=== PATIENT | female | born 1980 | race Caucasian/White ===

== ENCOUNTER 2022-06-05 15:08 | Emergency (ER) | payer SELFPAY ==
--- OUTSIDE RECORDS SUMMARY | 2022-06-05 15:10 | XMS REPORT | Continuity of Care Document ---
:1980 Author Organization [facility] t Address Pending sale to [facility] [address] [place] [address] Care Team Providers Name Role Phone FOG_A_Provider Attending Clinician Unavailable JAHAIRA HASSAN Attending Clinician Unavailable FOG_A_Provider Admitting Clinician Unavailable Payers Payer Name Policy Type Policy Number Effective Date Expiration Date Jenn garcia [facility] [id number] 2021 00:00:00 Problems Condition Condition Condition Status Onset Resolution Last Treating Co mments Source Name Details Category Date Date Treatment Clinician Date Traumatic Traumatic Problem Active 2021-06 Aza elton arthropath Arthropath 1-17 Or thope y-wrist y-wrist 00:00: dic 00 Sports Medicin e Closed Closed Problem Active 2021-06 Holly fracture Fracture 1-17 Orthop e of distal of Distal 00:00: dic end of End of 00 Sports right Right Medicin radius Radius e Osteoarthr Osteoarthr Problem Active 2021-06 A zalea itis of itis of 1-17 Orthope wrist Wrist 00:00: dic 00 Sports Medicin e Allergies, Adverse Reactions, Alerts This patient has no known allergies or adverse reactions. Medications Ordered Filled Start Stop Current Ordering Indication Dosage Frequency Signature Comments Components Source Medication Medication Date Date Medication? Clinician (SIG) Name Name acetaminoph acetaminoph No acetaminop Holly en 300 en 300 hen 300 Orthope mg-codeine mg-codeine mg-codeine dic 30 mg 30 mg 30 mg Sports tablet TAKE tablet TAKE tablet Medicin 1 TABLET BY 1 TABLET BY TAKE 1 e MOUTH THREE MOUTH THREE TABLET BY TIMES DAILY TIMES DAILY MOUTH DIRECTED DIRECTED THREE TIMES DAILY DIRECTED atorvastati atorvastati No atorvastat Holly n 40 mg n 40 mg in 40 mg Ortho pe tablet TAKE tablet TAKE tablet dic 1 TABLET BY 1 TABLET BY TAKE 1 Sports MOUTH ONCE MOUTH ONCE TABLET BY Medicin DAILY DAILY MOUTH ONCE e DAILY citalopram citalopram No citalopram Holly 40 mg 40 mg 40 mg Orthope tablet TAKE tablet TAKE tablet dic 1 & 07/01 & 07/01 TAKE 1 & Sport s (ONE & (ONE & 2 (ONE & Medic in ONE-HALF) ONE-HALF) ONE-HALF) e TABLETS BY TABLETS BY TABLETS BY MOUTH ONCE MOUTH ONCE MOUTH ONCE DAILY DAILY DAILY clindamycin clindamycin No clindamyci Holly HCl 300 mg HCl 300 mg n HCl 300 Orthope capsule capsule mg capsule dic TAKE 1 TAKE 1 TAKE 1 Sports CAPSULE BY CAPSULE BY CAPSULE BY Medicin MOUTH TWICE MOUTH TWICE MOUTH e DAILY DAILY TWICE DAILY clonazepam clonazepam No clonazepam Holly 0.5 mg 0.5 mg 0.5 mg Orthope tablet TAKE tablet TAKE tablet dic 1 TABLET BY 1 TABLET BY TAKE 1 Sports MOUTH ONCE MOUTH ONCE TABLET BY Medicin DAILY DAILY MOUTH ONCE e NEEDED FOR NEEDED FOR DAILY ANXIETY ANXIETY NEEDED FOR ANXIETY cyclobenzap cyclobenzap No cyclobenza Holly rine 10 mg rine 10 mg florentin 10 Orthope tablet tablet mg tablet dic Sports Medicin e dextroamphe dextroamphe No dextroamph Holly tamine-amph tamine-amph etamine-am Orthope etamine 30 etamine 30 phetamine dic mg tablet mg tablet 30 mg Spor ts TAKE ONE TAKE ONE tablet Medic in (1) (1) TAKE ONE e TABLET(S) TABLET(S) (1) BY MOUTH BY MOUTH TABLET(S) TWICE A TWICE A BY MOUTH DAY. DAY. TWICE A DAY. gabapentin gabapentin No gabapentin Holly 300 mg 300 mg 300 mg Orthope capsule capsule capsule dic TAKE 1 TAKE 1 TAKE 1 Sports CAPSULE BY CAPSULE BY CAPSULE BY Medicin MOUTH THREE MOUTH THREE MOUTH e TIMES DAILY TIMES DAILY THREE TIMES DAILY hydrocodone hydrocodone No hydrocodon Holly 10 10 e 10 Orthope mg-acetamin mg-acetamin mg-acetami dic ophen 325 ophen 325 nophen 325 Sports mg tablet mg tablet mg tablet Medicin e hydrocodone hydrocodone No hydrocodon Holly 5 5 e 5 Orthope mg-acetamin mg-acetamin mg-acetami dic ophen 325 ophen 325 nophen 325 Sports mg tablet mg tablet mg tablet Medicin TAKE 1 TO 2 TAKE 1 TO 2 TAKE 1 TO e TABLETS BY TABLETS BY 2 TABLETS MOUTH EVERY MOUTH EVERY BY MOUTH 6 HOURS 6 HOURS EVERY 6 NEEDED FOR NEEDED FOR HOURS PAIN PAIN NEEDED FOR PAIN ibuprofen ibuprofen No ibuprofen Holly 600 mg 600 mg 600 mg Orthope tablet TAKE tablet TAKE tablet dic 1 TABLET BY 1 TABLET BY TAKE 1 Sports MOUTH EVERY MOUTH EVERY TABLET BY Medicin 6 HOURS 6 HOURS MOUTH e NEEDED NEEDED EVERY 6 HOURS NEEDED ibuprofen ibuprofen No ibuprofen Holly 800 mg 800 mg 800 mg Orthope tablet tablet tablet dic Sports Medicin e Narcan 4 Narcan 4 No Narcan 4 Aza elton mg/actuatio mg/actuatio mg/actuati Orthope n nasal n nasal on nasal dic spray spray spray Sports Medicin e ondansetron ondansetron No ondansetro Holly 4 mg 4 mg n 4 mg Orthope disintegrat disintegrat disintegra dic ing tablet ing tablet ting Spo rts DISSOLVE 1 DISSOLVE 1 tablet M edicin TABLET IN TABLET IN DISSOLVE 1 e MOUTH EVERY MOUTH EVERY TABLET IN 6 HOURS 6 HOURS MOUTH NEEDED FOR NEEDED FOR EVERY 6 NAUSEA AND NAUSEA AND HOURS VOMITING VOMITING NEEDED FOR NAUSEA AND VOMITING oxycodone oxycodone No oxycodone Holly 10 mg 10 mg 10 mg Orthope tablet TAKE tablet TAKE tablet dic 1 TABLET BY 1 TABLET BY TAKE 1 Sports MOUTH EVERY MOUTH EVERY TABLET BY Medicin 4 HOURS 4 HOURS MOUTH e NEEDED FOR NEEDED FOR EVERY 4 PAIN PAIN HOURS NEEDED FOR PAIN oxycodone-a oxycodone-a No oxycodone- Holly cetaminophe cetaminophe acetaminop Orthope n 5 mg-325 n 5 mg-325 hen 5 di c mg tablet mg tablet mg-325 mg Sports tablet Medicin e prednisone prednisone No prednisone Holly 10 mg 10 mg 10 mg Orthope tablet TAKE tablet TAKE tablet dic 3 TABLETS 3 TABLETS TAKE 3 Spo rts BY MOUTH BY MOUTH TABLETS BY Enoc hoodicin ONCE DAILY ONCE DAILY MOUTH ONCE e FOR 3 DAYS FOR 3 DAYS DAILY FOR AND 2 ONCE AND 2 ONCE 3 DAYS AND DAILY FOR 3 DAILY FOR 3 2 ONCE DAYS AND 1 DAYS AND 1 DAILY FOR ONCE DAILY ONCE DAILY 3 DAYS AND FOR 3 DAYS FOR 3 DAYS 1 ONCE DAILY FOR 3 DAYS tramadol 50 tramadol 50 No tramadol Holly mg tablet mg tablet 50 mg Orth ope TAKE 1 TAKE 1 tablet dic TABLET BY TABLET BY TAKE 1 Spo rts MOUTH EVERY MOUTH EVERY TABLET BY Medicin 8 HOURS 8 HOURS MOUTH e NEEDED FOR NEEDED FOR EVERY 8 PAIN PAIN HOURS NEEDED FOR PAIN Procedures Procedure Date / Time Performed Performing Clinician Sourc e XR, wrist, 3 or more 2022-05-16 00:00:00 Holly Orthopedic view Sports Medicine Plan of Care Planned Activity Planned Date Details Comments Source Diagnostic Test 2022-05-16 ESR (erythrocyte Holly O rthopedic Pending 00:00:00 sedimentation rate), Sports Medicine blood [code = ESR (erythrocyte sedimentation rate), blood] Diagnostic Test 2022-05-16 C-reactive protein, [facility] Pending 00:00:00 quantitative [code = Sports Medicine C-reactive protein, quantitative] Diagnostic Test 2022-05-16 CBC w/ diff [code = [facility] Pending 00:00:00 CBC w/ diff] Sports Medicine Future Appointment 2022-06-11 Yonatan Garsia, [address] [facility] 08:15:00 [place], [place] Sports Med [place]ict [id number] Encounters Start End Encounter Admission Attending Care Care Encounter Source Date/Time Date/Time Type Type Clinicians Facility Department ID 2022-03-19 Outpatient [facility] [id number] [place] 17:24:36 [id number] Health 2022-03-18 Outpatient [facility] [id number] [place] 09:14:03 [id number] Health 2022-05-16 2022-05-16 Outpatient [facility]Provi [facility] AOSM 644 Holly 00:00:00 00:00:00 maria [id number] Orthop e dic Sports Medicin e 2022-05-16 2022-05-16 Yonatan LANDEROSSM [place] - Ortho [id number] Holly 00:00:00 00:00:00 MD Ady: Angelica Tamayo rthope [address] [facility], [place] [id number] , Ph. [phone] 2022-05-15 2022-05-15 Outpatient FOG_A_Provi AOSM AOSM 644 Holly 00:00:00 00:00:00 maria [id number] Orthop e dic Sports Medicin e 2022-05-10 2022-05-10 Outpatient FOG_A_Provi AOSM AOSM [id number] Holly 00:00:00 00:00:00 maria [id number] Orthop e dic Sports Medicin e 2022-04-03 2022-04-03 Outpatient [place] [facility] [id number] [place] 10:30:00 10:30:00 , JAHAIRA Proctor Results This patient has no known results.
--- NOTE | 2022-06-05 17:19 | RAD REPORT ---
EXAM DESCRIPTION: RAD - Wrist Right 3 View - 06/05/2022 4:58 pm CLINICAL HISTORY: known fracture, new fall and increased pain COMPARISON: No comparisons FINDINGS: Advanced degenerative changes are present along the radiocarpal joint space. The radial ar ticular surface has a flattened and broader overall articular surface is well is a ventral angulation . Defects are seen in the distal radius from prior fracture fixation hardware. The distal radius is s hortened relative to the ulna creating a 7 mm positive ulnar variance. The radial styloid is a free fragment. It is difficult to determine if this is a chronic free fragmen t or represents a new injury. No gross acute fracture deformity seen in the main body of the radius. No ulnar fracture is seen. Carpal bones articulate with the radius near the ventral margin. There is no dislocation or periostea l reaction noted. No foreign body or other soft tissue abnormality. IMPRESSION: Patient has advanced degenerative change along the radial articular surface lumbar posts urgical changes to the distal radius. Radial styloid is a free fracture fragment and this could be acute or chronic. A gross fracture defor mity of the wrist is not otherwise seen.
--- NOTE | 2022-06-05 17:24 | EDPHYS ---
Physician Documentation [facility] Name: Dunia Lopez Age: 41 yrs Sex: Female : 1980 Arrival Date: 06/05/2022 Time: 15:10 Bed IW1 Private MD: ED Physician Stewart Archibald HPI: 06/05 16:21 This 41 yrs old Female presents to ER via Ambulatory with complaints of fall, wrist rn injury. 16:21 The patient or guardian reports decreased range of motion, deformity, injury, pain. The rn complaints affect the right wrist diffusely. Onset: The symptoms/episode began/occurred 2 day(s) ago. Modifying factors: The symptoms are alleviated by nothing, the symptoms are aggravated by movement. Associated signs and symptoms: Pertinent negatives: cyanosis distally, decreased sensation distally, fever, numbness distally, tingling distally. The patient has experienced a previous episode. The patient has been recently seen by a physician:. Pt reports initially broke right wrist in jun/jul this year, had surgery, with complications, now told by most recent ortho surgeon that can only do fusion. Has most current plain films that show intraarticular fracture with poor alignment. Patient reports even before new fall 2 days ago had little no no ROM of right wrist. No other injury. Fell on outstretched arm. . Historical: - Allergies: 16:18 PENICILLINS; vg1 - Home Meds: 16:18 atorvastatin oral [Active]; Adderall XR Oral [Active]; vg1 - PMHx: 16:18 Hypercholesterolemia; vg1 - Immunization history:: Client reports receiving the 2nd dose of the Covid vaccine. - Social history:: Smoking status: Patient reports the use of cigarette tobacco products, denies chronic smoking, but will smoke occasionally. - Family history:: not pertinent. - Hospitalizations: : No recent hospitalization is reported. ROS: 16:21 Constitutional: Negative for fever, chills, and weight loss, MS/Extremity: + right rn wrist pain and injury Skin: + bruising to right wrist Neuro: Negative for headache, weakness, numbness, tingling, and seizure. Exam: 16:21 Constitutional: This is a well developed, well nourished patient who is awake, alert, rn and in no acute distress. Ambulatory to room without difficulty. Cardiovascular: Tachycardic, regular. No pulse deficits. Skin: Warm, dry, no cyanosis MS/ Extremity: Pulses equal, no cyanosis. Neurovascular intact. Little to no ROM right wrist. NO open wounds. + ecchymosis to distal radius and disstal ulna. Vital Signs: 16:13 BP 144 / 97; Pulse 110; Resp 16; Temp 98.9; Pulse Ox 100% ; Weight 83.91 kg; Height 5 vg1 ft. 4 in. (162.56 cm); Pain 7/10; 16:13 Body Mass Index 31.75 (83.91 kg, 162.56 cm) vg1 MDM: 15:49 Patient medically screened. rn 17:22 Differential diagnosis: closed fracture, contusion. Data reviewed: vital signs, nurses rn notes, radiologic studies, plain films, and as a result, I will discharge patient. Counseling: I had a detailed discussion with the patient and/or guardian regarding: the historical points, exam findings, and any diagnostic results supporting the discharge/admit diagnosis, radiology results, the need for outpatient follow up, to return to the emergency department if symptoms worsen or persist or if there are any questions or concerns that arise at home. Response to treatment: the patient's symptoms have mildly improved after treatment, and as a result, I will. 17:23 Special discussion: I discussed with the patient/guardian in detail that at this point rn there is no indication for admission to the hospital. It is understood, however, that if the symptoms persist or worsen the patient needs to return immediately for re-evaluation. Based on the history and exam findings, there is no indication for further emergent testing or inpatient evaluation. I discussed with the patient/guardian the need to see the orthopedic surgeon for further evaluation of the symptoms. ED course: Unclear if new fracture component, either way is scheduled for surgery/fusion with ortho, will dc home with ortho f/u as already planned. . 06/05 16:17 Order name: XRAY Wrist RIGHT 3 view; Complete Time: 17:21 rn 06/05 17:25 Order name: Splint - Volar Wrist Splint; Complete Time: 17:40 rn 06/05 17:25 Order name: Sling; Complete Time: 17:40 rn Administered Medications: 17:40 Drug: Warners (HYDROcodone-acetaminophen) 10 mg-325 mg 1 tabs Route: PO; vg1 17:40 Follow up: Response: Medication administered at discharge. vg1 Disposition Summary: 06/05/22 17:24 Discharge Ordered Location: Home rn Problem: new rn Symptoms: have improved rn Condition: Stable rn Diagnosis - Radial styloid fracture rn Followup: rn - With: Private Physician - When: As needed - Reason: Recheck today's complaints, Re-evaluation by your physician Discharge Instructions: - Discharge Summary Sheet rn - Wrist Fracture Treated With Immobilization rn Forms: - Medication Reconciliation Form rn - Thank You Letter rn - Antibiotic pattern vault clerk - Prescription Opioid Use rn Prescriptions: - Tylenol-Codeine #3 300 mg-30 mg Oral - take 1 tablet by ORAL route every 8 hours As needed; 12 tablet; Refills: 0, rn Product Selection Permitted Signatures: Dispatcher [employer] Stewart Vargas MD MD rn Garcia, Victoria, RN RN vg1
--- NOTE | 2022-06-05 17:24 | ER ---
Nurse's Notes [facility] Name: Dunia Lopez Age: 41 yrs Sex: Female : 1980 Arrival Date: 06/05/2022 Time: 15:10 Bed IW1 Private MD: Diagnosis: Radial styloid fracture Presentation: 06/05 16:13 Chief complaint: Patient states: tripped and landed on Right hand x 2 days ago Right vg1 hand appears to be swollen. Coronavirus screen: Vaccine status: Patient reports receiving the 2nd dose of the covid vaccine. Client denies travel out of the [place] in the last 14 days. Ebola Screen: Patient negative for fever greater than or equal to 101.5 degrees Fahrenheit, and additional compatible Ebola Virus Disease symptoms. Initial Sepsis Screen: Does the patient meet any 2 criteria?. Initial Sepsis Screen: Does the patient meet any 2 criteria? No. Patient's initial sepsis screen is negative. Does the patient have a suspected source of infection? No. Patient's initial sepsis screen is negative. Risk Assessment: Do you want to hurt yourself or someone else? Patient reports no desire to harm self or others. Onset of symptoms was June 03, 2022. 16:13 Method Of Arrival: Ambulatory [facility] 16:13 Acuity: SURAJ 4 vg1 Triage Assessment: 16:18 General: Appears uncomfortable, Behavior is cooperative. Pain: Complains of pain in vg1 right arm Pain currently is 7 out of 10 on a pain scale. Musculoskeletal: Reports numbness in right hand. Historical: - Allergies: 16:18 PENICILLINS; vg1 - Home Meds: 16:18 atorvastatin oral [Active]; Adderall XR Oral [Active]; vg1 - PMHx: 16:18 Hypercholesterolemia; vg1 - Immunization history:: Client reports receiving the 2nd dose of the Covid vaccine. - Social history:: Smoking status: Patient reports the use of cigarette tobacco products, denies chronic smoking, but will smoke occasionally. - Family history:: not pertinent. - Hospitalizations: : No recent hospitalization is reported. Screenin:46 Abuse screen: Denies threats or abuse. Nutritional screening: No deficits noted. vg1 Tuberculosis screening: No symptoms or risk factors identified. Fall Risk Fall in past 12 months (25 points). No secondary diagnosis (0 pts). No IV (0 pts). Ambulatory Aid- None/Bed Rest/Nurse Assist (0 pts). Gait- Normal/Bed Rest/Wheelchair (0 pts) Mental Status- Oriented to own ability (0 pts). Total Mcallister Fall Scale indicates Low Risk Score (25-44 pts). Assessment: 17:46 Reassessment: Patient appears in no apparent distress at this time. No changes from vg1 previously documented assessment. Patient is alert, oriented x 3, equal unlabored respirations, skin warm/dry/pink. Vital Signs: 16:13 BP 144 / 97; Pulse 110; Resp 16; Temp 98.9; Pulse Ox 100% ; Weight 83.91 kg; Height 5 vg1 ft. 4 in. (162.56 cm); Pain 7/10; 16:13 Body Mass Index 31.75 (83.91 kg, 162.56 cm) vg1 ED Course: 15:10 Patient arrived in ED. mr 15:49 Stewart Archibald MD is Attending Physician. rn 16:18 Triage completed. vg1 16:18 Arm band placed on. vg1 17:00 XRAY Wrist RIGHT 3 view In Process Unspecified. EDMS 17:46 No provider procedures requiring assistance completed. Patient did not have IV access vg1 during this emergency room visit. Administered Medications: 17:40 Drug: Mullins (HYDROcodone-acetaminophen) 10 mg-325 mg 1 tabs Route: PO; vg1 17:40 Follow up: Response: Medication administered at discharge. vg1 Medication: 17:46 VIS not applicable for this client. vg1 Outcome: 17:24 Discharge ordered by . rn 17:46 Discharged to home ambulatory. vg1 17:46 Condition: good 17:46 Discharge instructions given to patient, Instructed on discharge instructions, follow up and referral plans. medication usage, Demonstrated understanding of instructions, follow-up care, medications, Prescriptions given X 1. 17:47 Patient left the ED. vg1 Signatures: Dispatcher [employer] [facility] Ethel Dhaliwal mr Stewart Archibald MD MD rn Garcia, Victoria, RN RN vg1
[2022-06-05] MEDS ORDERED: HYDROCODONE/APAP 10/325 TAB ONE (17:37)
[2022-06-05 22:18] VITALS: BP 144/97; TEMP 98.9; O2SAT 100
== END 2022-06-05 17:47 | disposition home or self-care (01) ==
LOC: ER 15:08
PROC: 2W3CX1Z Immobilization of Right Lower Arm using Splint (ICD-10-PCS; principal; 2022-06-05)
DX: S52.511A Displaced fracture of right radial styloid process, initial encounter for closed fracture (principal)
CPT/HCPCS: 99283

== ENCOUNTER 2024-04-05 19:15 | Emergency (ER) | payer OTHER, SELFPAY ==
--- OUTSIDE RECORDS SUMMARY | 2024-04-05 19:19 | XMS REPORT | Continuity of Care Document ---
Author Name Unknown Address [address] [facility]. [address] [place] [address] [facility] Address [address] 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 Role Phone Yonatan Garsia Attending Clinician Unavailable FOG_A_Provider Attending Clinician Unavailable JAHAIRA HASSAN Attending Clinician Unavail able Yonatan Garsia Admitting Clinician Unavailable FOG_A_Provider Admitting Clinician Unavailable Payers Payer Name Policy Type Policy Number Effective Date Expirati on Date Source [facility] - S\T\S HEALTHCARE STRATEGIES - CIGNA (PPO) [id number] 2022 00:00:00 [facility] [id number] 2021 00:00:00 2022 00:00:00 Problems Condition Name Condition Details Condition Category Status Onset Date Resolution Date Last Treatment Date Treating Clinician Comments Source Carpal tunnel syndrome of right wrist Carpal Tunnel Syndrome of Right Wrist Problem Active 09-02 00:00: 00 [facility] 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 Problem Active 09-02 00:00: 00 [facility] Traumatic arthropath y-wrist Traumatic Arthropath y-wrist Problem Active 2021-06 00:00: 00 [facility] Closed fracture of distal end of right radius Closed Fracture of Distal End of Right Radius Problem Active 2021-06 00:00: 00 [facility] Osteoarthr itis of wrist Osteoarthr itis of Wrist Problem Active 2021-06 00:00: 00 [facility] Allergies, Adverse Reactions, Alerts Allergy Name Allergy Type Status Severity Reaction(s) Onset Date Inactive Date Treating Clinician Comments Source BIAXIN DA Active U 2001-06 00:00: 00 [facility] CODEINE DA Active U 2001-06 00:00: 00 [facility] No Known Contrast Allergie s DA Active U 2001-06 00:00: 00 [facility] No Known Food Allergie s DA Active U 2001-06 00:00: 00 [facility] No Known Other Allergie s DA Active U 2001-06 00:00: 00 [facility] PENICILL IN DA Active U 2001-06 00:00: 00 [facility] SULFA DRUGS DA Active U 2001-06 00:00: 00 [facility] Medications Ordered Medication Name Filled Medication Name Start Date Stop Date Current Medication? Ordering Clinician Indication Dosage Frequency Signature (SIG) Comments Components Source ibuprofen 600 mg tablet TAKE 1 TABLET BY MOUTH EVERY 6 HOURS NEEDED ibuprofen 600 mg tablet TAKE 1 TABLET BY MOUTH EVERY 6 HOURS NEEDED No ibuprofen 600 mg tablet TAKE 1 TABLET BY MOUTH EVERY 6 HOURS NEEDED [facility] ibuprofen 800 mg tablet ibuprofen 800 mg tablet No ibuprofen 800 mg tablet [facility] Narcan 4 mg/actuatio n nasal spray Narcan 4 mg/actuatio n nasal spray No Narcan 4 mg/actuati on nasal spray [facility] ondansetron 4 mg disintegrat ing tablet DISSOLVE 1 TABLET IN MOUTH EVERY 6 HOURS NEEDED FOR NAUSEA AND VOMITING ondansetron 4 mg disintegrat ing tablet DISSOLVE 1 TABLET IN MOUTH EVERY 6 HOURS NEEDED FOR NAUSEA AND VOMITING No ondansetro n 4 mg disintegra ting tablet DISSOLVE 1 TABLET IN MOUTH EVERY 6 HOURS NEEDED FOR NAUSEA AND VOMITING [facility] oxycodone 10 mg tablet TAKE 1 TABLET BY MOUTH EVERY 4 HOURS NEEDED FOR PAIN oxycodone 10 mg tablet TAKE 1 TABLET BY MOUTH EVERY 4 HOURS NEEDED FOR PAIN No oxycodone 10 mg tablet TAKE 1 TABLET BY MOUTH EVERY 4 HOURS NEEDED FOR PAIN [facility] oxycodone-a cetaminophe n 5 mg-325 mg tablet oxycodone-a cetaminophe n 5 mg-325 mg tablet No oxycodone- acetaminop hen 5 mg-325 mg tablet [facility] prednisone 10 mg tablet TAKE 3 TABLETS BY MOUTH ONCE DAILY FOR 3 DAYS AND 2 ONCE DAILY FOR 3 DAYS AND 1 ONCE DAILY FOR 3 DAYS prednisone 10 mg tablet TAKE 3 TABLETS BY MOUTH ONCE DAILY FOR 3 DAYS AND 2 ONCE DAILY FOR 3 DAYS AND 1 ONCE DAILY FOR 3 DAYS No prednisone 10 mg tablet TAKE 3 TABLETS BY MOUTH ONCE DAILY FOR 3 DAYS AND 2 ONCE DAILY FOR 3 DAYS AND 1 ONCE DAILY FOR 3 DAYS [facility] tramadol 50 mg tablet TAKE 1 TABLET BY MOUTH EVERY 8 HOURS NEEDED FOR PAIN tramadol 50 mg tablet TAKE 1 TABLET BY MOUTH EVERY 8 HOURS NEEDED FOR PAIN No tramadol 50 mg tablet TAKE 1 TABLET BY MOUTH EVERY 8 HOURS NEEDED FOR PAIN [facility] acetaminoph en 300 mg-codeine 30 mg tablet TAKE 1 TABLET BY MOUTH THREE TIMES DAILY DIRECTED acetaminoph en 300 mg-codeine 30 mg tablet TAKE 1 TABLET BY MOUTH THREE TIMES DAILY DIRECTED No acetaminop hen 300 mg-codeine 30 mg tablet TAKE 1 TABLET BY MOUTH THREE TIMES DAILY DIRECTED [facility] atorvastati n 40 mg tablet TAKE 1 TABLET BY MOUTH ONCE DAILY atorvastati n 40 mg tablet TAKE 1 TABLET BY MOUTH ONCE DAILY No atorvastat in 40 mg tablet TAKE 1 TABLET BY MOUTH ONCE DAILY [facility] citalopram 40 mg tablet TAKE 1 & 1/2 (ONE & ONE-HALF) TABLETS BY MOUTH ONCE DAILY citalopram 40 mg tablet TAKE 1 & 1/2 (ONE & ONE-HALF) TABLETS BY MOUTH ONCE DAILY No citalopram 40 mg tablet TAKE 1 & 1/2 (ONE & ONE-HALF) TABLETS BY MOUTH ONCE DAILY [facility] clindamycin HCl 300 mg capsule TAKE 1 CAPSULE BY MOUTH TWICE DAILY clindamycin HCl 300 mg capsule TAKE 1 CAPSULE BY MOUTH TWICE DAILY No clindamyci n HCl 300 mg capsule TAKE 1 CAPSULE BY MOUTH TWICE DAILY [facility] clonazepam 0.5 mg tablet TAKE 1 TABLET BY MOUTH ONCE DAILY NEEDED FOR ANXIETY clonazepam 0.5 mg tablet TAKE 1 TABLET BY MOUTH ONCE DAILY NEEDED FOR ANXIETY No clonazepam 0.5 mg tablet TAKE 1 TABLET BY MOUTH ONCE DAILY NEEDED FOR ANXIETY [facility] cyclobenzap rine 10 mg tablet cyclobenzap rine 10 mg tablet No cyclobenza florentin 10 mg tablet [facility] dextroamphe tamine-amph etamine 30 mg tablet TAKE ONE (1) TABLET(S) BY MOUTH TWICE A DAY. dextroamphe tamine-amph etamine 30 mg tablet TAKE ONE (1) TABLET(S) BY MOUTH TWICE A DAY. No dextroamph etamine-am phetamine 30 mg tablet TAKE ONE (1) TABLET(S) BY MOUTH TWICE A DAY. [facility] gabapentin 300 mg capsule TAKE 1 CAPSULE BY MOUTH THREE TIMES DAILY gabapentin 300 mg capsule TAKE 1 CAPSULE BY MOUTH THREE TIMES DAILY No gabapentin 300 mg capsule TAKE 1 CAPSULE BY MOUTH THREE TIMES DAILY [facility] hydrocodone 10 mg-acetamin ophen 325 mg tablet hydrocodone 10 mg-acetamin ophen 325 mg tablet No hydrocodon e 10 mg-acetami nophen 325 mg tablet [facility] hydrocodone 5 mg-acetamin ophen 325 mg tablet TAKE 1 TO 2 TABLETS BY MOUTH EVERY 6 HOURS NEEDED FOR PAIN hydrocodone 5 mg-acetamin ophen 325 mg tablet TAKE 1 TO 2 TABLETS BY MOUTH EVERY 6 HOURS NEEDED FOR PAIN No hydrocodon e 5 mg-acetami nophen 325 mg tablet TAKE 1 TO 2 TABLETS BY MOUTH EVERY 6 HOURS NEEDED FOR PAIN [facility] ibuprofen 600 mg tablet TAKE 1 TABLET BY MOUTH EVERY 6 HOURS NEEDED ibuprofen 600 mg tablet TAKE 1 TABLET BY MOUTH EVERY 6 HOURS NEEDED No ibuprofen 600 mg tablet TAKE 1 TABLET BY MOUTH EVERY 6 HOURS NEEDED [facility] ibuprofen 800 mg tablet ibuprofen 800 mg tablet No ibuprofen 800 mg tablet [facility] Narcan 4 mg/actuatio n nasal spray Narcan 4 mg/actuatio n nasal spray No Narcan 4 mg/actuati on nasal spray [facility] ondansetron 4 mg disintegrat ing tablet DISSOLVE 1 TABLET IN MOUTH EVERY 6 HOURS NEEDED FOR NAUSEA AND VOMITING ondansetron 4 mg disintegrat ing tablet DISSOLVE 1 TABLET IN MOUTH EVERY 6 HOURS NEEDED FOR NAUSEA AND VOMITING No ondansetro n 4 mg disintegra ting tablet DISSOLVE 1 TABLET IN MOUTH EVERY 6 HOURS NEEDED FOR NAUSEA AND VOMITING [facility] oxycodone 10 mg tablet TAKE 1 TABLET BY MOUTH EVERY 4 HOURS NEEDED FOR PAIN oxycodone 10 mg tablet TAKE 1 TABLET BY MOUTH EVERY 4 HOURS NEEDED FOR PAIN No oxycodone 10 mg tablet TAKE 1 TABLET BY MOUTH EVERY 4 HOURS NEEDED FOR PAIN [facility] oxycodone-a cetaminophe n 5 mg-325 mg tablet oxycodone-a cetaminophe n 5 mg-325 mg tablet No oxycodone- acetaminop hen 5 mg-325 mg tablet [facility] prednisone 10 mg tablet TAKE 3 TABLETS BY MOUTH ONCE DAILY FOR 3 DAYS AND 2 ONCE DAILY FOR 3 DAYS AND 1 ONCE DAILY FOR 3 DAYS prednisone 10 mg tablet TAKE 3 TABLETS BY MOUTH ONCE DAILY FOR 3 DAYS AND 2 ONCE DAILY FOR 3 DAYS AND 1 ONCE DAILY FOR 3 DAYS No prednisone 10 mg tablet TAKE 3 TABLETS BY MOUTH ONCE DAILY FOR 3 DAYS AND 2 ONCE DAILY FOR 3 DAYS AND 1 ONCE DAILY FOR 3 DAYS [facility] tramadol 50 mg tablet TAKE 1 TABLET BY MOUTH EVERY 8 HOURS NEEDED FOR PAIN tramadol 50 mg tablet TAKE 1 TABLET BY MOUTH EVERY 8 HOURS NEEDED FOR PAIN No tramadol 50 mg tablet TAKE 1 TABLET BY MOUTH EVERY 8 HOURS NEEDED FOR PAIN [facility] acetaminoph en 300 mg-codeine 30 mg tablet TAKE 1 TABLET BY MOUTH THREE TIMES DAILY DIRECTED acetaminoph en 300 mg-codeine 30 mg tablet TAKE 1 TABLET BY MOUTH THREE TIMES DAILY DIRECTED No acetaminop hen 300 mg-codeine 30 mg tablet TAKE 1 TABLET BY MOUTH THREE TIMES DAILY DIRECTED [facility] Adderall 30 mg tablet TAKE ONE (1) TABLET(S) BY MOUTH TWICE A DAY. Adderall 30 mg tablet TAKE ONE (1) TABLET(S) BY MOUTH TWICE A DAY. No Adderall 30 mg tablet TAKE ONE (1) TABLET(S) BY MOUTH TWICE A DAY. [facility] atorvastati n 40 mg tablet TAKE 1 TABLET BY MOUTH ONCE DAILY atorvastati n 40 mg tablet TAKE 1 TABLET BY MOUTH ONCE DAILY No atorvastat in 40 mg tablet TAKE 1 TABLET BY MOUTH ONCE DAILY [facility] citalopram 40 mg tablet TAKE 1 & 1/2 (ONE & ONE-HALF) TABLETS BY MOUTH ONCE DAILY citalopram 40 mg tablet TAKE 1 & 1/2 (ONE & ONE-HALF) TABLETS BY MOUTH ONCE DAILY No citalopram 40 mg tablet TAKE 1 & 1/2 (ONE & ONE-HALF) TABLETS BY MOUTH ONCE DAILY [facility] clindamycin HCl 300 mg capsule TAKE 1 CAPSULE BY MOUTH TWICE DAILY clindamycin HCl 300 mg capsule TAKE 1 CAPSULE BY MOUTH TWICE DAILY No clindamyci n HCl 300 mg capsule TAKE 1 CAPSULE BY MOUTH TWICE DAILY [facility] clonazepam 0.5 mg tablet TAKE 1 TABLET BY MOUTH ONCE DAILY NEEDED FOR ANXIETY clonazepam 0.5 mg tablet TAKE 1 TABLET BY MOUTH ONCE DAILY NEEDED FOR ANXIETY No clonazepam 0.5 mg tablet TAKE 1 TABLET BY MOUTH ONCE DAILY NEEDED FOR ANXIETY [facility] cyclobenzap rine 10 mg tablet cyclobenzap rine 10 mg tablet No cyclobenza florentin 10 mg tablet [facility] gabapentin 300 mg capsule TAKE 1 CAPSULE BY MOUTH THREE TIMES DAILY gabapentin 300 mg capsule TAKE 1 CAPSULE BY MOUTH THREE TIMES DAILY No gabapentin 300 mg capsule TAKE 1 CAPSULE BY MOUTH THREE TIMES DAILY [facility] hydrocodone 10 mg-acetamin ophen 325 mg tablet hydrocodone 10 mg-acetamin ophen 325 mg tablet No hydrocodon e 10 mg-acetami nophen 325 mg tablet [facility] hydrocodone 5 mg-acetamin ophen 325 mg tablet TAKE 1 TO 2 TABLETS BY MOUTH EVERY 6 HOURS NEEDED FOR PAIN hydrocodone 5 mg-acetamin ophen 325 mg tablet TAKE 1 TO 2 TABLETS BY MOUTH EVERY 6 HOURS NEEDED FOR PAIN No hydrocodon e 5 mg-acetami nophen 325 mg tablet TAKE 1 TO 2 TABLETS BY MOUTH EVERY 6 HOURS NEEDED FOR PAIN [facility] Procedures Procedure Date / Time Performed Performing Clinicia n Source XR, wrist, 3 or more view 2022-09-02 00:00:00 [facility] XR, wrist, 3 or more view 2022-05-16 00:00:00 [facility] Plan of Care Planned Activity Planned Date Details Comments Source Diagnostic Test Pending 2022-05-16 00:00:00 ESR (erythrocyte sedimentation rate), blood [code = ESR (erythrocyte sedimentation rate), blood] [facility] Diagnostic Test Pending 2022-05-16 00:00:00 C-reactive protein, quantitative [code = C-reactive protein, quantitative] [facility] Diagnostic Test Pending 2022-05-16 00:00:00 CBC w/ diff [code = CBC w/ diff] [facility] Encounters Start Date/Time End Date/Time Encounter Type Admission Type Attending Clinicians Care Facility Care Department Encounter ID Source 2022-06-21 08:00:00 Inpatient Yonatan Hernandez [facility] [id number] 1 41 [facility] 2022-03-19 17:24:36 Outpatient [facility] [id number] [facility] 2022-03-18 09:14:03 Outpatient [facility] [id number] [facility] 2023-03-31 00:00:00 2023-03-31 00:00:00 Outpatient FOG_A_Provi maria AOSM AOSM [id number] [facility] 2023-03-25 00:00:00 2023-03-25 00:00:00 Outpatient FOG_A_Provi maria AOSM AOSM [id number] [facility] 2023-02-18 00:00:00 2023-02-18 00:00:00 Outpatient FOG_A_Provi maria AOSM AOSM [id number] [facility] 2023-01-30 00:00:00 2023-01-30 00:00:00 Outpatient FOG_A_Provi maria AOSM AOSM [id number] [facility] 2023-01-14 00:00:00 2023-01-14 00:00:00 Outpatient FOG_A_Provi maria AOSM AOSM [id number] [facility] 2023-01-05 00:00:00 2023-01-05 00:00:00 Outpatient FOG_A_Provi maria AOSM AOSM [id number] [facility] 2022-10-25 00:00:00 2022-10-25 00:00:00 Outpatient FOG_A_Provi maria AOSM AOSM [id number] [facility] 2022-09-20 00:00:00 2022-09-20 00:00:00 Outpatient FOG_A_Provi maria AOSM AOSM [id number] [facility] 2022-09-02 08:00:00 2022-09-02 23:00:00 Outpatient Yonatan Hernandez [facility] [id number] [address] [place] [address] [facility] 2022-09-02 00:00:00 2022-09-02 00:00:00 Outpatient FOG_A_Provi maria AOSM AOSM [id number] [facility] 2022-09-02 00:00:00 2022-09-02 00:00:00 Yonatan Garsia MD: [address] [place] [address] , Ph. [phone] [facility] [place] [facility] [place] [facility] [id number] [facility] 2022-08-29 00:00:00 2022-08-29 00:00:00 Outpatient FOG_A_Provi maria AOSM AOSM [id number] [facility] 2022-08-22 00:00:00 2022-08-22 00:00:00 Outpatient FOG_A_Provi maria AOSM AOSM [id number] [facility] 2022-08-16 00:00:00 2022-08-16 00:00:00 Outpatient FOG_A_Provi maria AOSM AOSM [id number] [facility] 2022-08-16 00:00:00 2022-08-16 00:00:00 Outpatient FOG_A_Provi maria AOSM AOSM [id number] [facility] 2022-07-25 00:00:00 2022-07-25 00:00:00 Outpatient FOG_A_Provi maria AOSM AOSM [id number] [facility] 2022-07-12 00:00:00 2022-07-12 00:00:00 Outpatient FOG_A_Provi maria AOSM AOSM [id number] [facility] 2022-06-07 00:00:00 2022-06-07 00:00:00 Outpatient FOG_A_Provi maria AOSM AOSM [id number] [facility] 2022-05-22 00:00:00 2022-05-22 00:00:00 Outpatient FOG_A_Provi maria AOSM AOSM [id number] [facility] 2022-05-16 00:00:00 2022-05-16 00:00:00 Outpatient FOG_A_Provi maria AOSM AOSM [id number] [facility] 2022-05-16 00:00:00 2022-05-16 00:00:00 Yonatan Garsia MD: [address] [place] [address] , Ph. [phone] [facility] [place] [facility] [place] [facility] [id number] [facility] 2022-05-15 00:00:00 2022-05-15 00:00:00 Outpatient FOG_A_Provi maria AOSM AO [id number] [facility] 2022-05-10 00:00:00 2022-05-10 00:00:00 Outpatient FOG_A_Provi maria AOSM AOSM [id number] [facility] 2022-04-03 10:30:00 2022-04-03 10:30:00 Outpatient JAHAIRA HASSAN [facility] [id number] [facility] Results Test Description Test Time Test Comments Results Result Co mments Source C REACTIVE [id number] 13:20:00* Test Item Value Reference Range Interpretation Comme nts C REACTIVE PROTEIN (test cod e = CRP) < 0.2 mg/dL <0.9 CBC W/AUTO [id number] 12:48:00* Test Item Value Reference Range Interpretation Comme nts WHITE BLOOD CELL (test code = WBC) 12.3 K/mm3 5.8-11.0 H RED BLOOD CELL (test code = RBC) 4.24 M/mm3 4.2-5.4 N HEMOGLOBIN (test code = HGB) 12.3 g/dL 12-16 N HEMATOCRIT (test code = HCT) 37.3 % 37-47 N MEAN CELL VOLUME (test code = MCV) 88 fL 80-98 N MEAN CELL HGB (test code = MCH) 29.0 pg 27-34 N MEAN CELL HGB CONCENTRATION (test code = MCHC) 33.0 g/dL 30.8-34.1 N RED CELL DISTRIBUTION WIDTH (test code = RDW) 16.5 % 11-16 H PLT (test code = PLT) 437 K/mm3 130-400 H MEAN PLATELET VOLUME (test c ode = MPV) 9.5 fL 8.9-12.1 N NEUTROPHIL % (test code = NT%) 63.8 % 45-70 N LYMPHOCYTE % (test code = LY%) 27.5 % 20-40 N MONOCYTE % (test code = MO%) 4.8 % 3-10 N EOSINOPHIL % (test code = EO%) 2.9 % 1-5 N BASOPHIL % (test code = BA%) 0.5 % 0.0-1.1 N NEUTROPHIL # (test code = NT#) 7.84 K/mm3 2.00-7.50 H LYMPHOCYTE # (test code = LY#) 3.38 K/mm3 1.50-4.00 N MONOCYTE # (test code = MO#) 0.59 K/mm3 0.2-0.8 N EOSINOPHIL # (test code = EO#) 0.36 K/mm3 0.04-0.4 N BASOPHIL # (test code = BA#) 0.06 K/mm3 0.02-0.10 N MANUAL DIFF REQUIRED (test c ode = MDIFF) NO MANUAL DIFF NUCLEATED RED BLOOD CELL (te st code = NRBC) 0 % 0-0 N
[2024-04-05] MEDS ORDERED: KETOROLAC 30 MG/ML INJ ONE (20:00)
[2024-04-05] MEDS ORDERED: HYDROCODONE/APAP 10/325 TAB ONE (20:00)
--- NOTE | 2024-04-05 20:21 | RAD REPORT ---
EXAMINATION: Forearm Right CLINICAL INDICATION: Female, 43 years old. PAIN COMPARISON: 06/05/2022 FINDINGS: No acute fracture. Chronic right wrist deformity with flattening and sclerosis at the distal radius a t the articular surface. There are secondary degenerative changes in joint space loss at the radiocarpal joint. IMPRESSION: No acute osseous abnormality. 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
--- NOTE | 2024-04-05 20:23 | EDPHYS ---
Physician Documentation [facility] Name: Dunia Lopez Age: 43 yrs Sex: Female : 1980 Arrival Date: 04/05/2024 Time: 19:15 Bed 20 Private MD: ED Physician Tomas Jones HPI: 04/05 19:25 This 43 yrs old Female presents to ER via Unassigned with complaints of Hand Swelling, kb Hand Pain. 19:25 Pt is a 43 year old female who presents for pain to right forearm and wrist that kb radiates to shoulder that started this morning. STates she was trying to stretch out her arm and felt a pop in the area. States the pain hasn't gotten any better since then.. 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 - Infectious Disease History:: Denies. - Social history:: Smoking status: Patient reports the use of cigarette tobacco products, smokes one-half pack cigarettes per day. ROS: 19:26 Constitutional: As per HPI kb Exam: 19:27 Constitutional: This is a well developed, well nourished patient who is awake, alert, kb and in no acute distress. Head/Face: Normocephalic, atraumatic. ENT: Moist Mucous membranes Cardiovascular: Regular rate Respiratory: Respirations even and unlabored. No increased work of breathing. Talking in full sentences Skin: Warm, dry with normal turgor. Normal color. Neuro: Awake and alert, GCS 15, oriented to person, place, time, and situation. Moves all extremities. Normal gait. 19:27 Musculoskeletal/extremity: Extremities: grossly normal except: noted in the right wrist: pain, swelling, tenderness, ROM: intact in all extremities, Circulation is intact in all extremities. Sensation intact. Vital Signs: 19:39 BP 118 / 94; Pulse 105; Resp 18; Temp 99.1; Pulse Ox 96% on R/A; Weight 81.65 kg; cm10 Height 5 ft. 3 in. ; Pain 7/10; 20:08 BP 118 / 94; Pulse 95; Resp 17; Temp 98; Pulse Ox 97% on R/A; Pain 7/10; rg5 19:39 Body Mass Index 31.89 (81.65 kg, 160.02 cm) cm10 19:39 Pain Scale: Adult cm10 20:08 Pain Scale: Adult rg5 MDM: 19:23 Patient medically screened. kb 19:26 Differential diagnosis: closed fracture, strain, sprain. Data reviewed: vital signs, kb nurses notes. 20:22 Counseling: I had a detailed discussion with the patient and/or guardian regarding the kb historical points, exam findings, and any diagnostic results supporting the discharge/admit diagnosis, radiology results, the need for outpatient follow up, a family practitioner, a orthopedic surgeon, to return to the emergency department if symptoms worsen or persist or if there are any questions or concerns that arise at home. 04/05 19:26 Order name: Forearm Right XRAY; Complete Time: 20:21 kb 04/05 20:24 Order name: Syed Wrap; Complete Time: 20:39 kb Administered Medications: 20:07 Drug: [place] PO 10 mg-325 mg 1 tabs PO once Route: PO; rg5 20:39 Follow up: Response: No adverse reaction; Pain is decreased rg5 20:07 Drug: Ketorolac IM 30 mg IM once Route: IM; Site: right deltoid; rg5 20:39 Follow up: Response: No adverse reaction rg5 Disposition Summary: 04/05/24 20:22 Discharge Ordered Notes: Location: Home kb Condition: Stable kb Diagnosis - Pain in right forearm kb Followup: kb - With: Emergency Department - When: As needed - Reason: Worsening of condition Followup: kb - With: Private Physician - When: 2 - 3 days - Reason: Recheck today's complaints, Continuance of care, Re-evaluation by your physician Discharge Instructions: - Discharge Summary Sheet kb - Musculoskeletal Pain kb Forms: - Medication Reconciliation Form kb - Antibiotic Education kb - Prescription Opioid Use kb - Patient Portal Instructions kb - Leadership Thank You Letter kb Signatures: Dispatcher [employer] Angelia Berman FNP-C FNP-Melani Lopez, RN RN cm10 Wilian Butt, RN RN rg5
--- NOTE | 2024-04-05 20:23 | ER ---
Nurse's Notes [facility] Name: Dunia Lopez Age: 43 yrs Sex: Female : 1980 Arrival Date: 04/05/2024 Time: 19:15 Bed 20 Private MD: Diagnosis: Pain in right forearm Presentation: 04/05 19:39 Chief complaint: Patient states: Pain to right wrist. Pt has a previous injury to her cm10 wrist and she states that today pt felt something pop in her right wrist. Coronavirus screen: Client denies travel out of the [place] in the last 14 days. Ebola Screen: Patient denies travel to an Ebola-affected area in the 21 days before illness onset. No symptoms or risks identified at this time. Initial Sepsis Screen: Does the patient meet any 2 criteria? HR > 90 bpm. No. Patient's initial sepsis screen is negative. Does the patient have a suspected source of infection? No. Patient's initial sepsis screen is negative. Risk Assessment: Do you want to hurt yourself or someone else? Patient reports no desire to harm self or others. Onset of symptoms was April 05, 2024. 19:39 Method Of Arrival: Ambulatory cm10 19:39 Acuity: SURAJ 4 cm10 Triage Assessment: 19:40 General: Appears in no apparent distress. comfortable, Behavior is calm, cooperative. cm10 Neuro: No deficits noted. Level of Consciousness is awake, alert, obeys commands, Oriented to person, place, time, situation, Appropriate for age. DIRECTOR OF MEDICAL EDUCATION: 20:08 LMP 03/19/2024, unknown rg5 Historical: - Allergies: 19:40 PENICILLINS; cm10 - PMHx: 19:40 Hypercholesterolemia; cm10 - Immunization history:: Adult Immunizations up to date. - Infectious Disease History:: Denies. - Social history:: Smoking status: Patient reports the use of cigarette tobacco products, smokes one-half pack cigarettes per day. Screenin:10 [facility] ED Fall Risk Assessment (Adult) History of falling in the last 3 months, rg5 including since admission No falls in past 3 months (0 pts) Confusion or Disorientation No (0 pts) Intoxicated or Sedated No (0 pts) Impaired Gait No (0 pts) Mobility Assist Device Used No (0 pt) Altered Elimination No (0 pt) Score/Fall Risk Level 0 - 2 = Low Risk Oriented to surroundings, Maintained a safe environment, Hourly rounding (assess needs \T\ fall precautionary measures) done. Abuse screen: Denies threats or abuse. Nutritional screening: No deficits noted. Tuberculosis screening: No symptoms or risk factors identified. Assessment: 20:10 General: Appears in no apparent distress. Behavior is calm, cooperative, appropriate rg5 for age. Pain: Complains of pain in right hand Pain radiates to right arm Pain currently is 7 out of 10 on a pain scale. Quality of pain is described as aching, Pain began 2 hours ago. Neuro: Level of Consciousness is awake, alert, obeys commands, Oriented to person, place, time. Cardiovascular: Patient's skin is warm and dry. Rhythm is sinus rhythm. Respiratory: Airway is patent Trachea midline Respiratory effort is even, unlabored, Respiratory pattern is regular, symmetrical. GI: Abdomen is round non-distended. : No signs and/or symptoms were reported regarding the genitourinary system. EENT: No deficits noted. Derm: Skin is intact, Skin is dry, Skin is normal. Musculoskeletal: Reports pain in right hand and swelling. 20:48 Reassessment: Patient and/or family updated on plan of care and expected duration. Pain rg5 level reassessed. Patient is alert, oriented x 3, equal unlabored respirations, skin warm/dry/pink. Patient states feeling better. Patient states symptoms have improved. Vital Signs: 19:39 BP 118 / 94; Pulse 105; Resp 18; Temp 99.1; Pulse Ox 96% on R/A; Weight 81.65 kg; cm10 Height 5 ft. 3 in. ; Pain 7/10; 20:08 BP 118 / 94; Pulse 95; Resp 17; Temp 98; Pulse Ox 97% on R/A; Pain 7/10; rg5 19:39 Body Mass Index 31.89 (81.65 kg, 160.02 cm) cm10 19:39 Pain Scale: Adult cm10 20:08 Pain Scale: Adult rg5 ED Course: 19:21 Patient arrived in ED. gm2 19:23 Angelia Stevens FNP-C [facility]. kb 19:23 Tomas Jones MD is Attending Physician. kb 19:40 Triage completed. cm10 19:40 Arm band placed on left wrist. Patient placed in an exam room. cm10 19:44 Wilian Butt, RN is Primary Nurse. rg5 20:10 Patient has correct armband on for positive identification. Bed in low position. Call rg5 light in reach. 20:10 No provider procedures requiring assistance completed. Patient did not have IV access rg5 during this emergency room visit. 20:12 Forearm Right XRAY In Process Unspecified. EDMS 20:48 Provided Education on: post er care. rg5 Administered Medications: 20:07 Drug: Mchenry PO 10 mg-325 mg 1 tabs PO once Route: PO; rg5 20:39 Follow up: Response: No adverse reaction; Pain is decreased rg5 20:07 Drug: Ketorolac IM 30 mg IM once Route: IM; Site: right deltoid; rg5 20:39 Follow up: Response: No adverse reaction rg5 Medication: 20:10 VIS not applicable for this client. rg5 Outcome: 20:22 Discharge ordered by . kb 20:48 Discharged to home ambulatory, rg5 20:48 Condition: stable 20:48 Discharge instructions given to patient, 20:49 Patient left the ED. rg5 Signatures: Dispatcher [employer] EDMS Angelia Stevens, HAY STACKER-C HAY STACKER-Melani Lopez, RN RN cm10 Shiloh Villagran [facility] Wilian Butt, RN RN rg5
[2024-04-05 22:09] VITALS: BP 118/94
[2024-04-05 22:11] VITALS: TEMP 98; O2SAT 97
== END 2024-04-05 20:49 | disposition home or self-care (01) ==
LOC: ER 19:15
DX: M79.631 Pain in right forearm (principal); F17.210 Nicotine dependence, cigarettes, uncomplicated
CPT/HCPCS: 96372; 99284